=== PATIENT | male | born 1970 | race African-American/Black ===

== ENCOUNTER 2017-05-07 20:17 | Emergency (ER) | payer MEDICARE, OTHER ==
[~2017-05-07] VITALS: Ht 185.4 cm; Wt 77.1 kg
[~2017-05-07 20:17] MED LIST: ALBU0.63 NEB; AZIT1PAC9 PO; CRESTOR40 MG PO; FLUT1DIS5 IH; HYDR-2679 PO; INSU100I13 SQ; LISI-334 PO; METH4TAB2 PO; MONT10TA9 PO; PROVENTIL HFA6.7 GM IH; TIZA4TAB PO
[2017-05-07 20:33] VITALS: BP 124/70
[2017-05-07] MEDS ORDERED: predniSONE 20 MG TABLET PO ONE (20:45)
[2017-05-07] MEDS ORDERED: IPRATRPIUM/ALBUTEROL 0.5/2.5MG 3 ML NEBU. NEB ONE (20:45)
[2017-05-07] MEDS ORDERED: PSEUDOEPHEDRINE 30 MG TABLET. PO ONE (20:45)
--- NOTE | 2017-05-07 20:48 | PHYS DOC ---
Past Medical History Past Medical History: Asthma, Bronchitis, Diabetes-Type II, Hypertension, Pneumonia, Other Additional Past Medical Histor: asthma requiring endotracheal intubation, CHRONIC NECK PAIN Past Surgical History: No Surgical History Alcohol Use: None Drug Use: None Adult General Chief Complaint Chief Complaint: COUGH HPI HPI Patient is a 47 year old female presents to the emergency department with a 2 day history of SOA and Wheezing, Patient states he has had a frontal headache in which he has taken advil for minimal relief. Patient states he has used his inhale today and continues to having SOA. Patient states he has had nasal congestion. Denies fever, chills, nausea or vomiting. Review of Systems Review of Systems Constitutional: Denies fever or chills [] Eyes: Denies change in visual acuity, redness, or eye pain [] HENT: nasal congestion denies sore throat [] Respiratory: cough and shortness of breath [] Cardiovascular: No additional information not addressed in HPI [] GI: Denies abdominal pain, nausea, vomiting, bloody stools or diarrhea [] : Denies dysuria or hematuria [] Musculoskeletal: Denies back pain or joint pain [] Integument: Denies rash or skin lesions [] Neurologic: Denies headache, focal weakness or sensory changes [] Endocrine: Denies polyuria or polydipsia [] Current Medications Current Medications Current Medications Medications (Trade) Dose Ordered Sig/Eneida Start Time Stop Time Status Last Admin Dose Admin Albuterol/ Ipratropium (Duoneb) 3 ml 1X ONCE 05/07/17 20:45 05/07/17 20:46 DC 05/07/17 20:48 3 ML Prednisone (Prednisone) 40 mg 1X ONCE 05/07/17 20:45 05/07/17 20:46 DC 05/07/17 21:09 40 MG Pseudoephedrine HCl (Sudafed) 30 mg 1X ONCE 05/07/17 20:45 05/07/17 20:47 DC 05/07/17 21:09 30 MG Allergies Allergies Allergies Coded Allergies Type Severity Reaction Last Updated Verified peanut Allergy Intermediate 10/26/14 No Physical Exam Physical Exam Constitutional: Well developed, well nourished, no acute distress, non-toxic appearance. [] HENT: Normocephalic, atraumatic, bilateral external ears normal, oropharynx moist, no oral exudates, nose normal. Bilateral TM normal. throat without redness, no erythema, no exudate. Patient with frontal sinus tenderness. Patient with bilateral naris with swelling and redness Eyes: PERRLA, EOMI, conjunctiva normal, no discharge. [] Neck: Normal range of motion, no tenderness, supple, no stridor. [] Cardiovascular:Heart rate regular rhythm, no murmur [] Lungs & Thorax: Bilateral breath sounds wheezes noted posterior bilaterally Skin: Warm, dry, no erythema, no rash. [] Back: No tenderness [] Extremities: No tenderness, no cyanosis, no clubbing, ROM intact, no edema. [] Neurologic: Alert and oriented X 3, normal motor function, normal sensory function, no focal deficits noted. [] Psychologic: Affect normal, judgement normal, mood normal. [] Current Patient Data Vital Signs Vital Signs Date Time Temp Pulse Resp B/P (MAP) Pulse Ox O2 Delivery O2 Flow Rate FiO2 05/07/17 20:49 99 Room Air 05/07/17 20:33 97.6 74 22 97.6 EKG EKG [] Radiology/Procedures Radiology/Procedures [] Course & Med Decision Making Course & Med Decision Making Pertinent Labs and Imaging studies reviewed. (See chart for details) Patient was provided with Sudafed here in the emergency department for frontal sinus headache. He was also provided with a DuoNeb treatment and prednisone. Patient's breath sounds were clear upon reexamination. Chest x-ray was negative per Dr. Go. Patient will be discharged home with doxycycline for a sinus infection. Patient was also instructed to use prednisone at home 40 mg daily for the next 7 days. He was provided with an albuterol inhaler as he states he does not have a rescue inhaler. He does have nebulizer treatments at home. Patient became irate with discharge instructions stating that we had not done anything for him. He states that he still continues to have a headache. Patient was also noted to be able to talk in full complete sentences with no shortness of air difficulty breathing. Patient had been noted to be talking on the phone multiple times throughout the emergency department stay. Dragon Disclaimer Dragon Disclaimer This electronic medical record was generated, in whole or in part, using a voice recognition dictation system. Departure Departure Impression: Primary Impression: Asthma exacerbation Additional Impression: Acute sinus infection Disposition: HOME, SELF-CARE Condition: STABLE Referrals: UNKNOWN PCP NAME (PCP) Patient Instructions: Asthma, Adult, [id number], Sinusitis, [id number] Additional Instructions: You've been provided with respiratory treatment here in the emergency Department. Breath sounds are clear at this time. Your being treated for a asthma exacerbation as well as sinusitis. Use next DM as directed by visualization developer [id number]. Continue with your albuterol treatments at home. Prednisone as prescribed. Doxycycline as prescribed this is an antibiotic that will take care of your upper respiratory infection/sinusitis. Sudafed will also help with drainage and discharge from your anus areas. Drink plenty of fluids. Tylenol or ibuprofen for pain and discomfort. Follow-up through primary care physician in next 3-5 days. Return back to emergency prior signs and symptoms of become worse. Scripts Albuterol Sulfate (PROVENTIL HFA INHALER) 6.7 Gm Hfa.aer.ad 1 PUFF IH PRN Q4HRS Y for FOR ASTHMA, #1 INHALER 0 Refills Prov: CLIFF VILLATORO APRN 05/07/17 Doxycycline Hyclate (DOXYCYCLINE HYCLATE) 100 Mg Capsule 1 CAP PO BID, #20 CAP Prov: CLIFF VILLATORO APRN 05/07/17 Prednisone (PREDNISONE) 20 Mg Tablet 40 MG PO DAILY for 7 Days, #14 TAB Prov: CLIFF VILLATORO APRN 05/07/17 Problem Qualifiers CLIFF VILLATORO APRN May 07, 2017 20:48
[2017-05-07] MEDS ORDERED: PRED20TA PO (21:42)
[2017-05-07] MEDS ORDERED: DOXY100C2 PO (21:42)
[2017-05-07] MEDS ORDERED: PROVENTIL HFA6.7 GM IH (21:50)
--- NOTE | 2017-05-08 08:25 | RAD ---
Indication wheezing and cough. Shortness of breath. PA and lateral views of the chest were obtained. Comparison is made to an examination 10/11/2016. The heart, pulmonary vessels and mediastinum appear unremarkable. The lungs are clear. There is no pleural fluid or pneumothorax. There has not been a significant change compared to the previous exam. IMPRESSION: No acute or focal process is seen in the chest. No significant change compared to the prior exam
== END 2017-05-07 21:44 | disposition home or self-care (01) ==
LOC: ER 20:17
DX: J45.901 Unspecified asthma with (acute) exacerbation (principal); J01.90 Acute sinusitis, unspecified; E11.9 Type 2 diabetes mellitus without complications; I10 Essential (primary) hypertension; Z87.01 Personal history of pneumonia (recurrent); Z91.010 Allergy to peanuts
CPT/HCPCS: 71020; 94250; 94640; 99284; J7512; J7620

== ENCOUNTER 2018-08-14 13:09 | Emergency (ER) | payer OTHER ==
[~2018-08-14] VITALS: Ht 185.4 cm; Wt 77.1 kg
[~2018-08-14 13:09] MED LIST changes: +DOXY100C2 PO; +PRED20TA PO
[2018-08-14 13:25] VITALS: BP 124/60
[2018-08-14] MEDS ORDERED: predniSONE 10 MG TABLET PO ONE (13:45)
[2018-08-14] MEDS ORDERED: IPRATRPIUM/ALBUTEROL 0.5/2.5MG 3 ML NEBU. NEB ONE (13:45)
[2018-08-14] MEDS ORDERED: PRED50TA PO (14:57)
[2018-08-14] MEDS ORDERED: ALBU2.5V5 NEB (14:57)
--- NOTE | 2018-08-14 14:58 | PHYS DOC ---
Past Medical History Past Medical History: Asthma, Bronchitis, Diabetes-Type II, Hypertension, Pneumonia, Other Additional Past Medical Histor: asthma requiring endotracheal intubation, CHRONIC NECK PAIN Past Surgical History: No Surgical History Alcohol Use: Rarely Drug Use: Marijuana Adult General Chief Complaint Chief Complaint: ASTHMA HPI HPI Patient is a 48 year old male who presents with hypertension, asthma, diabetes type 2, who presents today complaining of cough and shortness of breath for 4 days. Patient states his nebulizer machine is broken and not dispensing medications well. Patient denies any fever. He states he needs a breathing treatment as well as just started on steroids. He states this typically clears his symptoms. Patient denies any fever. He states he also has a prescription of Advair at the local pharmacy but cannot fill it because it is too soon. Review of Systems Review of Systems Constitutional: Denies fever or chills [] Eyes: Denies change in visual acuity, redness, or eye pain [] HENT: Denies nasal congestion or sore throat [] Respiratory: Reports cough and shortness of breath [] Cardiovascular: No additional information not addressed in HPI [] GI: Denies abdominal pain, nausea, vomiting, bloody stools or diarrhea [] : Denies dysuria or hematuria [] Musculoskeletal: Denies back pain or joint pain [] Integument: Denies rash or skin lesions [] Neurologic: Denies headache, focal weakness or sensory changes [] All other systems were reviewed and found to be within normal limits, except as documented in this note. Current Medications Current Medications Current Medications Medications (Trade) Dose Ordered Sig/Eneida Start Time Stop Time Status Last Admin Dose Admin Albuterol/ Ipratropium (Duoneb) 3 ml 1X ONCE 08/14/18 13:45 08/14/18 13:52 DC Prednisone (Prednisone) 50 mg 1X ONCE 08/14/18 13:45 08/14/18 13:52 DC 08/14/18 14:05 50 MG Allergies Allergies Allergies Coded Allergies Type Severity Reaction Last Updated Verified peanut Allergy Intermediate 10/26/14 No Physical Exam Physical Exam Constitutional: Well developed, well nourished, no acute distress, non-toxic appearance. [] HENT: Normocephalic, atraumatic, bilateral external ears normal, oropharynx moist, no oral exudates, nose normal. [] Eyes: PERRLA, EOMI, conjunctiva normal, no discharge. [] Neck: Normal range of motion, no tenderness, supple, no stridor. [] Cardiovascular:Heart rate regular rhythm, no murmur [] Lungs & Thorax: Diminished breath sounds to posterior lung bases, no wheezing Abdomen: Bowel sounds normal, soft, no tenderness, no masses, no pulsatile masses. [] Skin: Warm, dry, no erythema, no rash. [] Back: No tenderness, no CVA tenderness. [] Extremities: No tenderness, no cyanosis, no clubbing, ROM intact, no edema. [] Neurologic: Alert and oriented X 3, normal motor function, normal sensory function, no focal deficits noted. [] Psychologic: Affect normal, judgement normal, mood normal. [] Current Patient Data Vital Signs Vital Signs Date Time Temp Pulse Resp B/P (MAP) Pulse Ox O2 Delivery O2 Flow Rate FiO2 08/14/18 14:32 95 Room Air 08/14/18 13:25 97.3 95 20 124/60 (81) 97.3 EKG EKG [] Radiology/Procedures Radiology/Procedures [] Course & Med Decision Making Course & Med Decision Making Pertinent Labs and Imaging studies reviewed. (See chart for details) This is a 48-year-old male patient presenting to the ED today cough or shortness of breath due to his asthma for 4 days. O2 sats 97% on room air on arrival. Diminished lung bases on arrival. She treatments as well as prednisone. Feeling better. Breathing back to baseline. Discharged with albuterol Nebulizer treatments and prednisone for 4 more days. Follow-up with primary care doctor in the next 7 days. Provided return precautions and discharged in stable condition. Staff Physician Addendum: I was working in the ER during the course of this patient's visit. I was available for consultation as needed, but I was not directly involved in the care of this patient. Dragon Disclaimer Dragon Disclaimer This electronic medical record was generated, in whole or in part, using a voice recognition dictation system. Departure Departure Impression: Primary Impression: Asthma exacerbation Disposition: 01 HOME, SELF-CARE Condition: STABLE Referrals: ROBERT STANFORD MD (PCP) follow up in the next seven days Patient Instructions: Asthma, Adult Additional Instructions: You were evaluated in the emergency room for asthma exacerbation. Use the breathing treatments as ordered. Come back to the ED at any point symptoms worsen. Follow-up with your primary care doctor in the next 7 days. Scripts Promethazine Hcl/Codeine (PROMETHAZINE-CODEINE SYRUP) 118 Ml Syrup 5 ML PO Q4-6HRS, #50 ML Prov: JIE CHAO APRN 08/14/18 Albuterol Sulfate (ALBUTEROL SULFATE NEB SOLN) 2.5 Mg/3 Ml Vial.neb 1 VIAL NEB PRN Q4HRS, #50 VIAL Prov: JIE CHAO APRN 08/14/18 Prednisone (PREDNISONE) 50 Mg Tablet 1 TAB PO DAILY, #4 TAB Prov: JEI CHAO APRN 08/14/18 Problem Qualifiers Primary Impression: Asthma exacerbation Asthma severity: mild Asthma persistence: intermittent Qualified Codes: J45.21 - Mild intermittent asthma with (acute) exacerbation JIE CHAO APRN Aug 14, 2018 14:58 KELLY KRAUS MD Aug 18, 2018 19:00
[2018-08-14] MEDS ORDERED: PROM118S5 PO (15:00)
== END 2018-08-14 14:55 | disposition home or self-care (01) ==
LOC: ER 13:09
DX: J45.21 Mild intermittent asthma with (acute) exacerbation (principal); I10 Essential (primary) hypertension; E11.9 Type 2 diabetes mellitus without complications; G89.29 Other chronic pain; Z91.010 Allergy to peanuts
CPT/HCPCS: 94640; 99283; J7512; 96372